=== PATIENT | male | born 1965 | race Caucasian/White ===

== ENCOUNTER 2022-07-27 20:20 | Emergency (ER) | payer BC ==
[2022-07-27 21:31] LABS: ANION GAP 11.7 mEq/L (7-13)
[2022-07-27] MEDS ORDERED: Lisinopril 5 MG Tab PO ONE (21:53)
== END 2022-07-27 22:07 | disposition home or self-care (01) ==
LOC: DL.ED 20:20
DX: I10 Essential (primary) hypertension (principal)
CPT/HCPCS: 36415; 80053; 84484; 85025; 93005; 93010; 99283; 99284; A9270

== ENCOUNTER 2024-05-26 05:20 | Day surgery (SDC) | payer BC ==
[2024-05-26] MEDS: Dextrose 5%-0.45% NaCl 1,000 ML IV SCH (05:46)
[2024-05-26] MEDS ORDERED: fentaNYL 100 MCG/2 ML SDV IV ONE (06:08)
[2024-05-26] MEDS ORDERED: Midazolam 1 MG/ML 2 ML SDV IV ONE (06:08)
[2024-05-26] MEDS ORDERED: Midazolam 1 MG/ML 2 ML SDV ONE (06:08)
[2024-05-26] MEDS ORDERED: fentaNYL 100 MCG/2 ML SDV ONE (06:08)
[2024-05-26] MEDS: fentaNYL 100 MCG/2 ML SDV IV ONE ×2 (06:25)
[2024-05-26] MEDS: Midazolam 1 MG/ML 2 ML SDV IV ONE ×6 (06:26→06:34)
== END 2024-05-26 07:45 | disposition home or self-care (01) ==
LOC: DL.ENDO 05:20
PROVIDERS: ATTEND Internal Medicine Gastroenterology
DX: Z12.11 Encounter for screening for malignant neoplasm of colon (principal); D12.3 Benign neoplasm of transverse colon; I10 Essential (primary) hypertension; K21.9 Gastro-esophageal reflux disease without esophagitis
CPT/HCPCS: 45385; J2250; J3010; J7799